=== PATIENT | male | born 1965 | race Caucasian/White ===

== ENCOUNTER 2016-12-28 13:09 | Emergency (ER) | payer OTHER ==
[2016-12-28 14:59] LABS: BASOPHIL 0.5 % (0-2); EOSINOPHIL 1.8 % (0-5); HCT 46.6 % (42.0-52.0); LYMPHOCYTE 20.3 % (15-48); MCH 33.3 pg (25.0-31.0); MCHC 34.3 g/dL (32.0-36.0); MCV 96.9 fL (78.0-100.0); MONOCYTE 9.1 % (0-12); MPV 11.3 fL (6.0-9.5); NEUTROPHIL 68.3 % (41-80); PLT 105 K/uL (150-400); RBC 4.81 M/uL (4.70-6.00); RDW 14.3 % (11.5-14.0); WBC 5.6 K/uL (4.0-10.5)
[2016-12-28 15:00] LABS: BILIRUBIN 2+ mg/dL (NEGATIVE); BLOOD NEGATIVE Ery/uL (NEGATIVE); CLARITY CLEAR (CLEAR); COLOR AMBER (YELLOW); GLUCOSE (U) NORMAL (NORMAL); KETONE (U) NEGATIVE (NEGATIVE); LEUKOCYTES NEGATIVE Leu/uL (NEGATIVE); NITRITE NEGATIVE (NEGATIVE); PROTEIN TRACE (LOW) mg/dL (NEGATIVE); UROBILINOGEN >=8.0 mg/dL (0.2-1.0); pH 8.5 (5.0-9.0)
[2016-12-28 15:08] LABS: BACTERIA 1+; MUCOUS TRACE; URINARY RBC RARE
[2016-12-28 15:14] LABS: AMPHETAMINES NEGATIVE (NEGATIVE); BARBITURATES NEGATIVE (NEGATIVE); BENZODIAZEPINES POSITIVE (NEGATIVE); COCAINE NEGATIVE (NEGATIVE); MARIJUANA (THC) NEGATIVE (NEGATIVE); METHADONE NEGATIVE (NEGATIVE); TRICYCLIC ANTIDEPRESSANT NEGATIVE (NEGATIVE)
[2016-12-28 15:17] LABS: CREATININE 0.7 mg/dL (0.7-1.2); POTASSIUM 3.3 mmol/L (3.5-5.1)
[2016-12-28 15:56] LABS: AMYLASE 60 U/L (28-100); LIPASE 226 U/L (13-60)
== END 2016-12-28 18:36 | disposition home or self-care (01) ==
LOC: FER 13:09
PROVIDERS: Nurse Practitioner Family
DX: F10.239 Alcohol dependence with withdrawal, unspecified (principal); N30.00 Acute cystitis without hematuria; F41.1 Generalized anxiety disorder; Z91.013 Allergy to seafood; Z91.041 Radiographic dye allergy status; Z20.5 Contact with and (suspected) exposure to viral hepatitis
CPT/HCPCS: 36415; 74000; 80048; 80305; 81001; 82150; 83690; 85025; G0480